=== PATIENT | female | born 1995 | race Native Hawaiian/Other Pacific Islander ===

== ENCOUNTER 2016-07-05 10:08 | Outpatient (CLI) | payer OTHER ==
[2016-07-05 10:42] LABS: PLATELET COUNT 346 K/uL (152-353)
[2016-07-05 10:49] LABS: POTASSIUM 4.1 mmol/L (3.6-5.2); SODIUM 136 mmol/L (136-145)
== END 2016-07-05 19:27 | disposition home or self-care (01) ==
LOC: LABW 10:08
PROVIDERS: Nurse Practitioner Family
DX: E66.8 Other obesity (principal); Z13.1 Encounter for screening for diabetes mellitus; Z13.0 Encounter for screening for diseases of the blood and blood-forming organs and certain disorders involving the immune mechanism; R53.83 Other fatigue; Z13.220 Encounter for screening for lipoid disorders; E03.8 Other specified hypothyroidism
CPT/HCPCS: 36415; 80053; 80061; 83036; 84439; 84443; 85027

== ENCOUNTER 2017-03-20 09:07 | Outpatient (CLI) | payer OTHER | END 2017-03-20 23:00 | disposition home or self-care (01) | LOC: LABW 09:07 | DX: E03.8 Other specified hypothyroidism (principal) | CPT/HCPCS: 36415; 84439; 84443 ==